=== PATIENT | female | born 1990 | race Asian ===

== ENCOUNTER 2020-08-22 03:15 | Emergency (ER) | payer OTHER ==
[~2020-08-22] VITALS: Ht 157.5 cm; Wt 45.4 kg
[2020-08-22 03:40] VITALS: BP 116/77
--- NOTE | 2020-08-22 03:40 | NUR ---
30 Y/O FEMALE PATIENT PRESENTS TO ED WITH ABDOMINAL PAIN . DENIES N/V/D; SKIN IS PINK/WARM/DRY; AAOX4 WITH EVEN AND STEADY GAIT; LUNGS CLEAR BL; HR EVEN AND REGULAR; PT DENIES ANY FEVER, CP, SOB, OR COUGH AT THIS TIME; PATIENT STATES PAIN OF 7/10 AT THIS TIME; VSS; PATIENT POSITIONED FOR COMFORT; HOB ELEVATED; BEDRAILS UP X2; BED DOWN. ER MD MADE AWARE OF PT STATUS.
--- NOTE | 2020-08-22 03:45 | NUR ---
ERMD EXAMINING PT, WITH THE USE OF PHONE TANK PUMPER PANELBOARD. TANK PUMPER PANELBOARD FOR MANDARIN: JOANNE [id number]
--- NOTE | 2020-08-22 03:57 | NUR ---
PT AMBULATORY TO BED 07.
--- NOTE | 2020-08-22 04:05 | NUR ---
COLLECTED JENAE SWAB, SENT TO LAB. HANDED TO KELVIN RINALDI TECH
[2020-08-22 04:14] LABS: BASOPHILS % (AUTO) 0.2 % (0.0-2.0); EOSINOPHILS # (AUTO) 0.1 K/uL (0-0.4); EOSINOPHILS % (AUTO) 0.9 % (0.0-4.0); HEMATOCRIT 41.5 % (36-48); LYMPHOCYTES # (AUTO) 1.6 K/uL (2.5-16.5); LYMPHOCYTES % (AUTO) 14.4 % (20.5-51.1); MEAN CORPUSCULAR HEMOGLOBIN 31 pg (27-31); MEAN CORPUSCULAR HGB CONC 34 g/dL (33-37); MEAN CORPUSCULAR VOLUME 91.3 fL (80-94); MONOCYTES # (AUTO) 0.6 K/uL (0.8-1.0); MONOCYTES % (AUTO) 5.1 % (1.7-9.3); NEUTROPHILS # (AUTO) 8.7 K/uL (1.8-7.7); NEUTROPHILS % (AUTO) 79.4 % (42.2-75.2); PLATELET COUNT (AUTO) 164 K/uL (140-450); RED BLOOD CELL COUNT(AUTO) 4.55 MIL/uL (4.20-5.40); RED CELL DISTRIBUTION WIDTH 12.6 % (11.6-13.7)
[2020-08-22] MEDS: ALUMINUM HYD/MAG/SIMETHICONE 30 ML UDC PO ONE (04:31)
[2020-08-22] MEDS: ONDANSETRON 4 MG ODT PO ONE (04:32)
[2020-08-22 04:42] LABS: ALBUMIN 4.6 g/dL (3.4-5.0); ANION GAP 13.7 (8-16); CARBON DIOXIDE 25.5 mmol/L (21-32); CREATININE 0.7 mg/dL (0.6-1.3); POTASSIUM 3.2 mmol/L (3.5-5.1); TOTAL BILIRUBIN 0.4 mg/dL (0.0-1.0)
[2020-08-22] MEDS: HYDROcodone/APAP 5/325 MG 1 TAB TAB PO ONE (04:43)
[2020-08-22 05:19] LABS: APPEARANCE,URINE CLEAR (CLEAR); BILIRUBIN,URINE NEGATIVE (NEGATIVE); BLOOD, URINE NEGATIVE (NEGATIVE); COLOR,URINE YELLOW (YELLOW); LEUKOCYTE ESTERASE ,URINE 1+ (NEGATIVE); NITRITE, URINE NEGATIVE (NEGATIVE); UGLUCOSE NEGATIVE (NEGATIVE)
[2020-08-22 05:29] LABS: RBC,URINE 0-5 /HPF (0-5)
[2020-08-22] MEDS ORDERED: ACET-8386 PO (06:18)
[2020-08-22] MEDS ORDERED: ONDA-24 PO (06:18)
[2020-08-22 06:29] VITALS: BP 116/77
--- NOTE | 2020-08-22 06:30 | NUR ---
Patient discharged with v/s stable. Written and verbal after care instructions given and explained. Patient alert, oriented and verbalized understanding of instructions. Ambulatory with to car. All questions addressed prior to discharge. ID band removed. Patient advised to follow up with PMD. Rx of ZOFRAN AND PERCOCET given. Patient educated on indication of medication including possible reaction and side effects. Opportunity to ask questions provided and answered.
== END 2020-08-22 06:30 | disposition home or self-care (01) ==
LOC: MED 03:15
DX: R10.13 Epigastric pain (principal); Z20.822 Contact with and (suspected) exposure to COVID-19
CPT/HCPCS: 36415; 76705; 80053; 81001; 84703; 85025; 87086; 87426; 99284; Q0162